=== PATIENT | female | born 1960 | race Caucasian/White ===

== ENCOUNTER 2018-03-16 06:01 | Emergency (ER) | payer MEDICARE ==
[2018-03-16] MEDS ORDERED: CLINDAMYCIN 150 MG CAP PO ONE (06:19)
--- NOTE | 2018-03-16 06:26 | Emergency Department Record ---
History of Present Illness - General Chief complaint: Dental Stated complaint: DENTAL PAIN Time Seen by Provider: 03/16/18 06:19 Source: Patient Mode of Arrival: Ambulatory Limitations: No limitations - History of Present Illness Initial comments: 57 yo female presents to ED for evaluation of swelling to the left lower mandible associated with pain symptoms. Patient denies fevers, chills, or recent illness. Patient denies dental injury or trauma, but does report recent dental infection to the left upper maxilla. Patient reports that the dentist told her that she may need to "inject antibiotic into the area". Patient reports pain with chewing and palpation of the left submandibular region. MD complaint: Other Onset/Timin -: Days(s) Severity: Moderate Quality: Aching Consistency: Constant Improves with: None Worsens with: None - Related Data Previous Rx's Medication Instructions Recorded Clindamycin HCl 300 mg PO QID #40 capsule 03/16/18 Allergies Allergy/AdvReac Type Severity Reaction Status Date / Time adhesive tape Allergy RASH Verified 03/16/18 06:07 Iodinated Contrast- Oral and Allergy HIVES Verified 03/16/18 06:07 IV Dye Latex, Natural Rubber Allergy RASH Verified 03/16/18 06:07 nortriptyline [From [place]] Allergy CHEST PAIN Verified 03/16/18 06:07 Penicillins Allergy HIVES Verified 03/16/18 06:07 Sulfa (Sulfonamide Allergy HIVES Verified 03/16/18 06:07 Antibiotics) codeine AdvReac VOMITING Verified 03/16/18 06:07 hydrocodone [From [place]] AdvReac CONSTIPATIO Verified 03/16/18 06:07 N Review of Systems Constitutional: Denies: Chills, Fever, Malaise, Night sweats Eyes: Denies: Eye discharge, Eye pain ENT: Reports: Dental pain. Denies: Congestion, Ear pain, Epistaxis Respiratory: Denies: Cough, Dyspnea Cardiovascular: Denies: Chest pain, Dyspnea on exertion Endocrine: Denies: Fatigue, Heat or cold intolerance Gastrointestinal: Denies: Abdominal pain, Nausea, Vomiting Genitourinary: Denies: Incontinence, Retention Musculoskeletal: Denies: Arthralgia, Back pain, Gout, Joint swelling Skin: Denies: Bruising, Change in color Neurological: Denies: Abnormal gait, Confusion, Headache, Seizure Psychiatric: Denies: Anxiety Hematological/Lymphatic: Denies: Anemia, Blood Clots Physical Exam - General General Appearance: Alert, Oriented x3, Cooperative, Mild distress Limitations: No limitations - Head Head exam: Atraumatic, Normocephalic, Normal inspection Head exam detail: negative: Abrasion, Contusion, Sotelo's sign, General tenderness, Hematoma, Laceration - Eye Eye exam: Other (Dialted pupil left, 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 negative: Conjunctival injection, Periorbital swelling, Periorbital tenderness, Scleral icterus - ENT Ear exam: negative: Auricular hematoma, Auricular trauma Nasal Exam: negative: Active bleeding, Discharge, Dried blood, Foreign body Mouth exam: Other (No evidence for Aurelio's angina is present on examination.). negative: Drooling, Laceration, Muffled voice, Tongue elevation Teeth exam: negative: Dental caries, Dental tenderness # Throat exam: negative: Tonsillar erythema, Tonsillomegaly, R peritonsillar mass , L peritonsillar mass - Neck Neck exam: Tenderness (TTP to the left submandibular region on examination, no abscess present. No signifcant lymphadenopathy is present on examination.). negative: Meningismus - Respiratory Respiratory exam: Normal lung sounds bilaterally. negative: Rales, Respiratory distress, Rhonchi, Stridor - Cardiovascular Cardiovascular Exam: Regular rate, Normal rhythm, Normal heart sounds - GI/Abdominal GI/Abdominal exam: Soft. negative: Rebound, Rigid, Tenderness - Rectal Rectal exam: Deferred - exam: Deferred - Extremities Extremities exam: Normal inspection. negative: Calf tenderness, Pedal edema, Tenderness - Back Back exam: Denies: CVA tenderness (R), CVA tenderness (L) - Neurological Neurological exam: Alert, Normal gait, Oriented X3 - Psychiatric Psychiatric exam: Normal affect, Normal mood - Skin Skin exam: Normal color. negative: Abrasion Type of lesion: negative: abrasion Course - Reevaluation(s) Reevaluation #1: 03/16/18 06:24 Discussed treatment options with the patient including CT imaging of the area to exclude abnormality of the submandibular region, patient declined. Will treat with Clindamycin as directed for probable submandibular gland inflammation. Disposition Disposition: Discharge Clinical Impression: Submandibular gland inflammation Disposition: Home, Self-Care Condition: (2) Stable Instructions: Sialoadenitis (ED) Additional Instructions: Return to ED if your symptoms worsen or if you have any concerns. Clindamycin as directed. Follow-up with your Dentist in 1-3 days as directed. Prescriptions: Clindamycin HCl 300 mg PO QID #40 capsule Forms: Patient Portal Access Time of Disposition: 06:27 Quality - Quality Measures Quality Measures: N/A - Blood Pressure Screening Does Patient Have Any of the Following: No Blood Pressure Classification: Pre-Hypertensive BP Reading Systolic Measurement: 151 Diastolic Measurement: 89 Screening for High Blood Pressure: < Pre-Hypertensive BP, F/U Documented > [ G8950] Pre-Hypertensive Follow-up Interventions: Referral to alternative/primary care provider.
== END 2018-03-16 06:30 | disposition home or self-care (01) ==
LOC: ER 06:01
DX: K11.8 Other diseases of salivary glands (principal); R68.84 Jaw pain
CPT/HCPCS: 99282

== ENCOUNTER 2018-06-19 11:17 | Emergency (ER) | payer MEDICARE ==
--- NOTE | 2018-06-19 11:41 | Emergency Department Record ---
History of Present Illness - General Chief complaint: ENT Stated complaint: R EAR PAIN/SORE THROAT Time Seen by Provider: 06/19/18 11:26 Source: Patient Mode of Arrival: Ambulatory Limitations: No limitations - History of Present Illness Initial comments: The patient is here due to R ear pain and sinus congestion with colored drainage for a week. She now is having trouble hearing out of the R ear with a mild ST. She denies any MENDOZA, neck pain, or fever. MD complaint: Ear pain, Other Onset/Timin -: Days(s) Severity: Moderate Severity scale (1-10): 7 Quality: Aching - Related Data Previous Rx's Medication Instructions Recorded Cefdinir [Omnicef] 300 mg PO BID #20 cap 06/19/18 Neomycin/Polymyxin B Sulf/Hc 3 drop AFFEAR QID #10 ml 06/19/18 [Cortisporin Otic] Allergies Allergy/AdvReac Type Severity Reaction Status Date / Time adhesive tape Allergy RASH Verified 06/19/18 11:30 Iodinated Contrast- Oral and Allergy HIVES Verified 06/19/18 11:30 IV Dye Latex, Natural Rubber Allergy RASH Verified 06/19/18 11:30 nortriptyline [From [place]] Allergy CHEST PAIN Verified 06/19/18 11:30 Penicillins Allergy HIVES Verified 06/19/18 11:30 Sulfa (Sulfonamide Allergy HIVES Verified 06/19/18 11:30 Antibiotics) codeine AdvReac VOMITING Verified 06/19/18 11:30 hydrocodone [From [place]] AdvReac CONSTIPATIO Verified 06/19/18 11:30 N Travel Screening - Travel/Exposure Within Last 30 Days Have you traveled within the last 30 days?: No - Travel/Exposure Within Last Year Have you traveled outside the [place] in the last year?: No - Additonal Travel Details Have you been exposed to anyone with a communicable illness?: No - Travel Symptoms Symptom Screening: None Review of Systems Constitutional: Denies: Chills, Fever Eyes: Denies: Eye discharge ENT: Reports: Congestion, Ear pain Respiratory: Denies: Cough, Dyspnea Past Medical History - SOCIAL HISTORY Smoking Status: Current every day smoker Alcohol Use: None Drug Use: None - RESPIRATORY Hx Respiratory Disorders: Yes Hx Asthma: Yes (seasonal inhaler) Hx Bronchitis: Yes Comment:: seasonal allergies - CARDIOVASCULAR Hx Cardio Disorders: Yes Hx Hypertension: Yes Hx Irregular Heartbeat: Yes (with drinking/syncope) Comment:: high cholesterol - NEURO Hx Neuro Disorders: Yes Hx TIA: Yes (multiple) Comment:: S/P fall-2005, Cognitive difficulties, tremors, memory issues - GI Hx GI Disorders: Yes Hx Reflux: Yes Hx of Polyps: Yes (benign) Comment:: Gastritis - Hx Genitourinary Disorders: Yes Hx Kidney Stones: Yes - ENDOCRINE Hx Endocrine Disorders: No - MUSCULOSKELETAL Hx Musculoskeletal Disorders: Yes Hx Fibromyalgia: Yes - PSYCH Hx Psych Problems: Yes Hx Anxiety: Yes Hx Depression: Yes Comment:: Hoarders syndrome - HEMATOLOGY/ONCOLOGY Hx Hematology/Oncology Disorders: No Family Medical History Any Significant Family History?: Yes Hx Cancer: Father, Mother *Cancer Comment: Skin w/ both; Prostate; Uterine and breast w/mom Hx HTN: Father, Mother Physical Exam - General General Appearance: Alert, Oriented x3, Cooperative, No acute distress - Head Head exam: Atraumatic, Normocephalic, Normal inspection - Eye Eye exam: Normal appearance, PERRL, EOMI - ENT ENT exam: negative: Normal exam, Normal orophraynx, TM's normal bilaterally ( The R TM does appear mildly inflamed with an effusion.) Ear exam: Normal external inspection, External canal tenderness (There is tenderness to the R ear canal with pulling on the pinnae and pulling on the tragus. The canal is inflamed deep at the TM.) Nasal Exam: Sinus tenderness (R max.) Throat exam: Tonsillar erythema. negative: Normal inspection, Tonsillomegaly, Tonsillar exudate - Neck Neck exam: Normal inspection, Full ROM. negative: Lymphadenopathy, Meningismus , Tenderness - Respiratory Respiratory exam: Normal lung sounds bilaterally. negative: Respiratory distress - Cardiovascular Cardiovascular Exam: Regular rate, Normal rhythm, Normal heart sounds - Neurological Neurological exam: Alert, Normal gait, Oriented X3. negative: Abnormal gait, Motor sensory deficit - Psychiatric Psychiatric exam: negative: Anxious Course Vital Signs 06/19/18 11:24 Temperature 98.2 F Pulse Rate 75 Respiratory 18 Rate Blood Pressure 141/95 Pulse Ox 99 - Reevaluation(s) Reevaluation #1: I did discuss the need for an oral Abx and R ear drops. She states she is able to take Keflex so we will prescribe Cefdinir and she is to see her PCP in 3-5 days for recheck. 06/19/18 11:45 Disposition Disposition: Discharge Clinical Impression: Otitis media Qualifiers: Otitis media type: unspecified Chronicity: acute Qualified Code(s): H66.90 - Otitis media, unspecified, unspecified ear Disposition: Home, Self-Care Condition: (2) Stable Instructions: Sinusitis (ED) Additional Instructions: Please take the Cefdinir and Cortisporin as directed. Please see your family doctor in 3-5 days for recheck and return to the ER for any worsening symptoms. Prescriptions: Cefdinir [Omnicef] 300 mg PO BID #20 cap Neomycin/Polymyxin B Sulf/Hc [Cortisporin Otic] 3 drop AFFEAR QID #10 ml Forms: Patient Portal Access Time of Disposition: 11:45 Quality - Quality Measures Quality Measures: N/A - Blood Pressure Screening View Details: Yes Does Patient Have Any of the Following: No Blood Pressure Classification: Hypertensive Reading Systolic Measurement: 141 Diastolic Measurement: 95 Screening for High Blood Pressure: < First Hypertensive BP, F/U Documented > [ G8950] First Hypertensive Follow-up Interventions: Referral to alternative/primary care provider.
== END 2018-06-19 12:05 | disposition home or self-care (01) ==
LOC: ER 11:17
DX: H66.91 Otitis media, unspecified, right ear (principal); I10 Essential (primary) hypertension; F17.210 Nicotine dependence, cigarettes, uncomplicated
CPT/HCPCS: 99282